=== PATIENT | female | born 1970 | race American Indian/Alaskan Native ===

== ENCOUNTER 2021-04-17 09:40 | Emergency (ER) | payer SELFPAY ==
--- NOTE | 2021-04-17 10:29 | Emergency Department Report ---
ED Psych HPI - General Chief Complaint: Altered Mental Status Stated Complaint: MENTAL BREAKDOWN Time Seen by Provider: 04/17/21 09:56 Source: family Mode of arrival: Wheelchair - History of Present Illness Initial Comments: Patient is 50 years old female with history of hypertension. Patient brought to the emergency room by her son for evaluation of mental breakdown. Son stated that her has been murdered recently and since then she has been acting irrelevant. He stated that she is refusing to talk. Upon arrival to the ER patient refused to talk however she is responding to voice stimuli by nodding her head and smashing her lips. Unable to obtain any information at this moment from the patient. Patient looks very depressed. I was able to talk to patient son Mr. Terry Jacob with a phone #[phone]. He stated that she has a mental breakdown like this approximately 10 years ago. He stated that her was murdered 13 years ago. He stated that yesterday was his anniversary. He stated that she send him and the rest of the family a notice stating that she is needing help. He told me that she informed them that she just wanted to sleep and not wake up. He stated that her first mental breakdown was 10 years ago for which she was admitted to hospital for approximately 1week. When patient son is in the room patient is tearful as he giving her multiple hugs and telling her that he care for her and he will make sure that she get better. Complaint: feels depressed, altered mental status -: days(s) Associated Psychiatric Symptoms: depression - Related Data Allergies Allergy/AdvReac Type Severity Reaction Status Date / Time No Known Allergies Allergy Verified 04/17/21 14:17 ED Review of Systems ROS: Stated complaint: MENTAL BREAKDOWN Other details as noted in HPI Comment: Unobtainable due to pts medical conditions ED Physical Exam - General Limitations: Altered Mental Status General appearance: alert, in no apparent distress - Head Head exam: Present: atraumatic, normocephalic, normal inspection - Eye Eye exam: Present: normal appearance, PERRL - ENT ENT exam: Present: normal exam, normal orophraynx, mucous membranes moist - Neck Neck exam: Present: normal inspection, full ROM. Absent: tenderness, meningismus - Respiratory Respiratory exam: Present: normal lung sounds bilaterally - Cardiovascular Cardiovascular Exam: Present: regular rate, normal rhythm, normal heart sounds - GI/Abdominal GI/Abdominal exam: Present: soft, normal bowel sounds. Absent: distended, tenderness, guarding, rebound, rigid, organomegaly, mass, bruit, pulsatile mass, hernia - Extremities Exam Extremities exam: Present: normal inspection, full ROM, normal capillary refill. Absent: tenderness, pedal edema, joint swelling, calf tenderness - Back Exam Back exam: Present: normal inspection. Absent: CVA tenderness (R), CVA tenderness (L) - Neurological Exam Neurological exam: Present: alert - Psychiatric Psychiatric exam: Present: depressed - Skin Skin exam: Present: warm, intact, normal color ED Course Vital Signs 04/17/21 04/17/21 04/17/21 09:41 10:19 12:42 Temperature 98.3 F Pulse Rate 87 82 Respiratory 14 14 Rate Blood Pressure 160/107 179/87 [Right] O2 Sat by Pulse 97 100 98 Oximetry 04/17/21 04/18/21 04/18/21 19:27 08:25 15:49 Temperature 98.4 F 97.9 F Pulse Rate 88 74 100 H Respiratory 18 20 16 Rate Blood Pressure 153/92 154/110 167/99 [Right] O2 Sat by Pulse 100 100 98 Oximetry 04/18/21 04/18/21 04/18/21 18:09 22:18 22:31 Temperature 98.6 F Pulse Rate 107 H 97 H Respiratory 18 18 18 Rate Blood Pressure 179/102 146/92 [Right] O2 Sat by Pulse 100 100 100 Oximetry 04/19/21 04/19/21 04/19/21 09:50 10:29 21:44 Temperature 98.1 F 98.6 F Pulse Rate 115 H 95 H Respiratory 18 18 Rate Blood Pressure 138/79 132/83 [Right] O2 Sat by Pulse 96 96 99 Oximetry ED Medical Decision Making - Lab Data Result diagrams: 04/17/21 10:22 04/17/21 10:22 - Medical Decision Making Patient is 50 years old female with history of hypertension. Patient brought to the emergency room by her son for evaluation of mental breakdown. Son stated that her has been murdered recently and since then she has been acting irrelevant. He stated that she is refusing to talk. Upon arrival to the ER patient refused to talk however she is responding to voice stimuli by nodding her head and smashing her lips. Unable to obtain any information at this moment from the patient. Patient looks very depressed. I was able to talk to patient son Mr. Terry Jacob with a phone #[phone]. He stated that she has a mental breakdown like this approximately 10 years ago. He stated that her was murdered 13 years ago. He stated that yesterday was his anniversary. He stated that she send him and the rest of the family a notice stating that she is needing help. He told me that she informed them that she just wanted to sleep and not wake up. He stated that her first mental breakdown was 10 years ago for which she was admitted to hospital for approximately 1week. When patient son is in the room patient is tearful as he giving her multiple hugs and telling her that he care for her and he will make sure that she get better. Patient is medically cleared to be evaluated by psychiatric. Critical care attestation.: If time is entered above; I have spent that time in minutes in the direct care of this critically ill patient, excluding procedure time. ED Disposition Clinical Impression: Major depressive disorder, Acute hypokalemia Disposition: [address] [place] [address] Is pt being admited?: No Condition: Stable Referrals: PRIMARY CARE, [Primary Care Provider] - 3-5 Days
[2021-04-17 10:52] LABS: Basophils % (Auto) 0.4 % (0.0-1.8); Eosinophils % (Auto) 0.1 % (0.0-4.3); Hematocrit 41.8 % (30.3-42.9); Lymphocytes # (Auto) 1.4 K/mm3 (1.2-5.4); Lymphocytes % (Auto) 28.3 % (13.4-35.0); Mean Corpuscular HGB Conc 31 % (30-34); Mean Corpuscular Volume 83 fl (79-97); Monocytes # (Auto) 0.3 K/mm3 (0.0-0.8); Monocytes % (Auto) 5.5 % (0.0-7.3); Platelet Count 259 K/mm3 (140-440); Red Blood Count 5.04 M/mm3 (3.65-5.03); Red Cell Distribution Width 15.7 % (13.2-15.2)
[2021-04-17 11:08] LABS: BUN/Creatinine Ratio 13; Blood Urea Nitrogen 12 mg/dL (7-17); Calcium 8.9 mg/dL (8.4-10.2); Hemolysis Index 6
--- NOTE | 2021-04-17 12:42 | Consultation ---
History of Present Illness - Reason for Consult Consult date: 04/17/21 Reason for consult: Mental health evaluation - History of Present Psychiatric Illness ED Note: Patient is 50 years old female with history of hypertension. Patient brought to the emergency room by her son for evaluation of mental breakdown. Son stated that her has been murdered recently and since then she has been acting irrelevant. He stated that she is refusing to talk. Upon arrival to the ER patient refused to talk however she is responding to voice stimuli by nodding her head and smashing her lips. Unable to obtain any information at this moment from the patient. Patient looks very depressed. I was able to talk to patient son Mr. Terry Jacob with a phone #[phone]. He stated that she has a mental breakdown like this approximately 10 years ago. He stated that her was murdered 13 years ago. He stated that yesterday was his anniversary. He stated that she send him and the rest of the family a notice stating that she is needing help. He told me that she informed them that she just wanted to sleep and not wake up. He stated that her first mental breakdown was 10 years ago for which she was admitted to hospital for approxi mately 1week. When patient son is in the room patient is tearful as he giving her multiple hugs and telling her that he care for her and he will make sure that she get better. The patient was seen today, she is calm but obtunded. The patient stares and unable to participate in the assessment process at this time. PAST PSYCHIATRIC HISTORY- Unable to assess PAST MEDICAL HISTORY: None reported Family Psychiatric History: None reported or documented SOCIAL HISTORY-Unable to assess REVIEW OF SYSTEMS-Unable to assess MENTAL STATUS EXAMINATION-Unable to assess Assessment (1) Major depressive disorder (2) (3) Plan 1013 Start Serquel 50mg po QHS Start seroquel 25 mg BID Sitter: Defer to primary Medical: Per primary Disposition: Recommend acute inpatient psychiatric treatment Will follow Case staffed with Dr. Rhoades Medications and Allergies Active Meds: Active Medications Potassium Chloride (Potassium Chloride Er 20 Meq Tab) 40 meq PO ONCE ONE Stop: 04/17/21 11:21 Mental Status Exam - Vital signs Last Vital Signs Temp 98.3 F 04/17/21 09:41 Pulse 82 04/17/21 10:19 Resp 14 04/17/21 10:19 BP 179/87 04/17/21 10:19 Pulse Ox 100 04/17/21 10:19 Results Result Diagrams: 04/17/21 10:22 04/17/21 10:22 Abnormal lab results 04/17/21 04/17/21 04/17/21 Range/Units 10:22 10:22 10:22 RBC 5.04 H (3.65-5.03) M/mm3 MCH 26 L (28-32) pg RDW 15.7 H (13.2-15.2) % Potassium 3.2 L (3.6-5.0) mmol/L Carbon Dioxide 18 L (22-30) mmol/L Glucose 105 H (65-100) mg/dL Salicylates < 0.3 L (2.8-20.0) mg/dL Acetaminophen (10.0-30.0) ug/mL 04/17/21 Range/Units 10:22 RBC (3.65-5.03) M/mm3 MCH (28-32) pg RDW (13.2-15.2) % Potassium (3.6-5.0) mmol/L Carbon Dioxide (22-30) mmol/L Glucose (65-100) mg/dL Salicylates (2.8-20.0) mg/dL Acetaminophen 5.0 L (10.0-30.0) ug/mL All other labs normal.
[2021-04-17] MEDS ORDERED: POTASSIUM CHLORIDE ER 20 MEQ TAB PO NR (16:30)
[2021-04-17] MEDS ORDERED: ALUM-MAG HYDROXIDE-SIMETHICONE 200-200-20MG/5ML ORAL LIQD 30 ML PO ONE (20:16)
[2021-04-17 20:37] LABS: Amphetamine Screen,Urine Negative; Benzodiazepines Screen,Urine Negative; Cocaine Screen,Urine Negative; Methadone Screen,Urine Negative; Opiate Screen,Urine Negative
[2021-04-17 20:48] LABS: Bilirubin,Urine NEG (Negative); Blood,Urine SM (Negative); Color,Urine Yellow (Yellow); Mucus,Urine 2+ /HPF; Urobilinogen,Urine < 2.0 mg/dL (<2.0)
[2021-04-17 20:51] LABS: Cannabinoid Screen,Urine Positive
[2021-04-17] MEDS: QUEtiapine 25 MG TAB PO SCH ×2 (22:06)
[2021-04-18] MEDS ORDERED: LORazepam 1 MG TAB PO ONE (04:28)
[2021-04-18] MEDS ORDERED: QUEtiapine 25 MG TAB PO ONE (04:28)
--- NOTE | 2021-04-18 04:30 | Event Note ---
Nurse called to ask for chemical restraint. Patient is agitated. She went into the door. She is difficult to redirect. I have ordered a second dose of Seroquel as well as 1 mg of lorazepam. Patient appears restless.
[2021-04-18] MEDS: QUEtiapine 25 MG TAB PO SCH ×3 (10:43→21:44)
--- NOTE | 2021-04-18 10:56 | Progress Note ---
Subjective - Reason for Consult Consult date: 04/18/21 Reason for consult: mental health evaluation - Chief Complaint Chief complaint: The patient was seen this morning, she is calm, alert and oriented x2. The patient states that she was having severe anxiety yesterday, she reports doing well today stating " I feel better, I slept well, I had a bad day yesterday. " She denies any current suicidal/homicidal ideation and denies hallucinations. ED Note : Nurse called to ask for chemical restraint. Patient is agitated. She went into the door. She is difficult to redirect. I have ordered a second dose of Seroquel as well as 1 mg of lorazepam. Patient appears restless. REVIEW OF SYSTEMS Constitutional: Negative for weight loss ENT: Negative for stridor Respiratory: Negative for cough or hemoptysis All other systems reviewed and are negative MENTAL STATUS EXAMINATION General Appearance and Behavior: Age appropriate, good hygiene, wearing appropriate clothes, calm and cooperative polite with questioning. Cooperation: engaged Psychomotor Behavior: Psychomotor normal Mood: "ok" Affect and affective range: congruent with stated mood Thought Process: goal directed Thought Content: Not Suicidal Speech: Normal volume, Regular rate and rhythm, Suicidal Ideation: Denies Homicidal Ideation: Denies Hallucinations: Denies Delusions: None elicited Impulse Control: fair Insight and Judgment: Limited Memory: Limited Attention: attentive Orientation: a/o Assessment and Plan (1)unspecified anxiety disorder Treatment Plan Continue 1013 Continue Seroquel 50mg po QHS Continue Seroquel 25mg ppo BID Sitter: per primary Medical: Per primary Disposition: Recommend acute psychiatric inpatient treatment. Will follow. case staffed with Dr. Rhoades Mental Status Exam - Vital signs Last Vital Signs Temp 97.9 F 04/18/21 08:25 Pulse 74 04/18/21 08:25 Resp 20 04/18/21 08:25 BP 154/110 04/18/21 08:25 Pulse Ox 100 04/18/21 08:25
[2021-04-18] MEDS ORDERED: amLODIPine 5 MG TAB PO ONE (15:51)
--- NOTE | 2021-04-18 19:43 | Event Note ---
Date: 04/18/21 Patient required chemical restraint overnight. She is currently calm and cooperative. 1013 continued. Awaiting psychiatric placement.
[2021-04-19] MEDS ORDERED: HALOPERIDOL LACTATE 5 MG/1 ML INJ IM PRN (09:16)
[2021-04-19] MEDS ORDERED: LORazepam 2 MG/ML VIAL IM PRN (09:16)
--- NOTE | 2021-04-19 10:23 | Progress Note ---
Subjective - Reason for Consult Consult date: 04/19/21 Reason for consult: mental health evaluation - Chief Complaint Chief complaint: The patient was seen getting IM injection for agitation. The patient is endorses auditory hallucinations , but unable to give details states the voices are saying " a lot." She denies any current suicidal/ homicidal ideation. REVIEW OF SYSTEMS Constitutional: Negative for weight loss ENT: Negative for stridor Respiratory: Negative for cough or hemoptysis All other systems reviewed and are negative MENTAL STATUS EXAMINATION General Appearance and Behavior: Age appropriate, good hygiene, wearing appropriate clothes, calm and cooperative polite with questioning. Cooperation: engaged Psychomotor Behavior: Psychomotor normal Mood: Hallucinations Affect and affective range: congruent with stated mood Thought Process: goal directed Thought Content: Not Suicidal Speech: Normal volume, Regular rate and rhythm, Suicidal Ideation: Denies Homicidal Ideation: Denies Hallucinations: auditory Delusions: None elicited Impulse Control: Questionable Insight and Judgment: Limited Memory: Limited Attention: attentive Orientation: a/o Assessment and Plan (1)Major depressive disorder with psychotic features Treatment Plan Continue 1013 Continue Seroquel 50mg po QHS Continue Seroquel 25mg po BID Sitter: per primary Medical: Per primary Disposition: Recommend acute psychiatric inpatient treatment. Will follow. case staffed with Dr. Rhoades Mental Status Exam - Vital signs Last Vital Signs Temp 98.1 F 04/19/21 09:50 Pulse 115 H 04/19/21 09:50 Resp 18 04/19/21 09:50 BP 138/79 04/19/21 09:50 Pulse Ox 96 04/19/21 09:50
[2021-04-19] MEDS: QUEtiapine 25 MG TAB PO SCH (10:33)
[2021-04-19 21:45] VITALS: BP 132/83
== END 2021-04-19 21:50 ==
LOC: EEVIPCON 09:40 → ED 09:40
DX: F32.9 Major depressive disorder, single episode, unspecified (principal); E87.6 Hypokalemia; Z20.822 Contact with and (suspected) exposure to COVID-19
CPT/HCPCS: 36415; 80048; 80307; 81001; 84703; 85025; 96372; 99285; J1630; J2060; U0003; 80320; G0480